=== PATIENT | female | born 1955 | race Caucasian/White ===

== ENCOUNTER → 2017-04-30 | Outpatient (CLI) | payer BC ==
--- NOTE | 2017-04-30 15:48 | MRI ---
BRAIN MRI WITH AND WITHOUT CONTRAST: INDICATION: A 61-year-old female with progressive headaches. Olfactory visual aura. FINDINGS: No prior imaging comparison available. The ventricular system is appropriate in size. Midline structures are maintained. No significant si gnal abnormality is apparent. No hemorrhagic susceptibility is seen. There is no acute territorial infarction. No pathologic intraaxial enhancement. The skull base flow voids are maintained. There is minimal mucosal thickening in the paranasal sinuses. IMPRESSION: There are no acute intracranial abnormalities. POS: [facility]
== END ==
LOC: MRI 09:00
PROVIDERS: ATTEND Student in an Organized Health Care Education/Training Program
DX: G43.109 Migraine with aura, not intractable, without status migrainosus (principal); R43.1 Parosmia; H53.9 Unspecified visual disturbance
CPT/HCPCS: 70553

== ENCOUNTER 2018-01-03 22:28 | Emergency (ER) | payer BC ==
--- NOTE | 2018-01-03 23:19 | RAD ---
TWO VIEW CHEST: 01/03/18 INDICATION: Chest pain. COMPARISON: 12/07/10. FINDINGS: There is no consolidation, effusion or pneumothorax. The cardiac silhouette is normal in size. IMPRESSION: No focal consolidation. POS: [facility]
[2018-01-03 23:20] LABS: #Basophils 0.1 thou/uL (0.0-0.2); #Eosinphils 0.1 thou/uL (0.0-0.7); #Lymphocytes 3.8 thou/uL (1.20-3.40); #Monocytes 0.5 thou/uL (0.11-0.59); %Basophils 1.3 % (0.0-1.0); %Eosinophils 1.6 % (0.0-10.0); %Lymphocytes 44.6 % (21.0-51.0); %Monocytes 5.9 % (0.0-10.0); %Neutrophils 46.6 % (42.0-75.0); Hemoglobin 16.2 g/dL (12.0-16.0); Mean Corpuscular HGB CONC 33.7 g/dL (32.0-36.0); Mean Corpuscular Hemoglobin 29.9 pg (27.0-31.0); Mean Corpuscular Volume 88.6 fL (78.0-98.0); Mean Platelet Volume 7.2 fL (7.4-10.4); Platelet Count 250 thou/uL (130-400); RBC Distribution Width 12.7 % (11.5-14.5); Red Blood Cell (RBC) Count 5.43 mill/uL (4.20-5.40); White Blood Cell (WBC) Count 8.5 thou/uL (4.8-10.8)
[2018-01-03 23:44] LABS: ALT (SGPT) 19 U/L (8-55); AST (SGOT) 20 U/L (5-34); Albumin 4.9 g/dL (3.4-4.8); Alkaline Phosphatase 87 U/L (40-150); Anion Gap 14 mmol/L (10-20); BUN (Urea Nitrogen) 7 mg/dL (9.8-20.1); Bilirubin, Total 0.8 mg/dL (0.2-1.2); CK (CPK) 38 U/L (29-168); Calc. Creatinine Clearance 0 mL/min (70-130); Calcium 10.3 mg/dL (7.8-10.44); Carbon Dioxide 29 mmol/L (23-31); Chloride 102 mmol/L (98-107); Estimated GFR-MDRD 82; Globulin 2.8 g/dL (2.4-3.5); Glucose 141 mg/dL (80-115); Potassium 4.2 mmol/L (3.5-5.1); Protein, Total 7.7 g/dL (6.0-8.3); Sodium 141 mmol/L (136-145)
[2018-01-03 23:47] LABS: Troponin I Less than 0.010 ng/mL (< 0.028)
--- NOTE | 2018-01-05 18:09 | EKG ---
Test Reason : CHEST PAIN Blood Pressure : / mmHG Vent. Rate : 081 BPM Atrial Rate : 081 BPM P-R Int : 180 ms QRS Dur : 082 ms QT Int : 376 ms P-R-T Axes : 064 -22 059 degrees QTc Int : 436 ms Normal sinus rhythm Possible Left atrial enlargement Inferior infarct , age undetermined Possible Anterior infarct , age undetermined Abnormal ECG Confirmed by COLLEEN ANGULO D.O. ([id number]), purchasing expeditor DAMION LEONE ([id number]) on 01/05/2018 6:09:19 PM Referred By: Confirmed By:COLLEEN ANGULO D.O.
== END 2018-01-04 00:40 | disposition home or self-care (01) ==
LOC: ERS 22:28
DX: R07.2 Precordial pain (principal); E03.9 Hypothyroidism, unspecified; E11.40 Type 2 diabetes mellitus with diabetic neuropathy, unspecified; I10 Essential (primary) hypertension; E78.5 Hyperlipidemia, unspecified; G43.909 Migraine, unspecified, not intractable, without status migrainosus
CPT/HCPCS: 36415; 71046; 80053; 82550; 82553; 84484; 85025; 93005

== ENCOUNTER 2018-11-27 00:22 | Emergency (ER) | payer BC ==
[2018-11-27] MEDS ORDERED: Morphine 4 MG/ML VIAL ONE (01:42)
[2018-11-27] MEDS ORDERED: Ondansetron PF 4 MG/2 ML Vial ONE (01:42)
[2018-11-27 02:02] LABS: #Basophils 0.2 thou/uL (0.0-0.2); #Eosinphils 0.2 thou/uL (0.0-0.7); #Lymphocytes 3.3 thou/uL (1.20-3.40); #Monocytes 0.6 thou/uL (0.11-0.59); #Neutrophils 6.5 thou/uL (1.40-6.50); %Basophils 1.5 % (0.0-1.0); %Eosinophils 1.5 % (0.0-10.0); %Lymphocytes 30.2 % (21.0-51.0); %Monocytes 5.9 % (0.0-10.0); %Neutrophils 60.9 % (42.0-75.0); Hemoglobin 15.7 g/dL (12.0-16.0); Mean Corpuscular HGB CONC 34.8 g/dL (32.0-36.0); Mean Platelet Volume 7.2 fL (7.4-10.4); Platelet Count 258 thou/uL (130-400); RBC Distribution Width 12.7 % (11.5-14.5); Red Blood Cell (RBC) Count 5.24 mill/uL (4.20-5.40); White Blood Cell (WBC) Count 10.7 thou/uL (4.8-10.8)
[2018-11-27 02:24] LABS: ALT (SGPT) 24 U/L (8-55); AST (SGOT) 20 U/L (5-34); Albumin 4.5 g/dL (3.4-4.8); Alkaline Phosphatase 92 U/L (40-150); Anion Gap 16 mmol/L (10-20); BUN (Urea Nitrogen) 11 mg/dL (9.8-20.1); Bilirubin, Total 0.6 mg/dL (0.2-1.2); Calc. Creatinine Clearance 0 mL/min (70-130); Carbon Dioxide 27 mmol/L (23-31); Chloride 100 mmol/L (98-107); Estimated GFR-MDRD 76; Globulin 2.4 g/dL (2.4-3.5); Glucose 174 mg/dL (80-115); Lipase 17 U/L (8-78); Potassium 3.7 mmol/L (3.5-5.1); Protein, Total 6.9 g/dL (6.0-8.3); Sodium 139 mmol/L (136-145)
[2018-11-27] MEDS ORDERED: Lidocaine Viscous Sol 2% 15 ml UD Cup ONE (02:33)
--- NOTE | 2018-11-27 05:49 | CT ---
CT ABDOMEN AND PELVIS WITH IV CONTRAST: INDICATIONS: History of three to five days with constipation with bright red blood per rectum. COMPARISON: None. FINDINGS: The lung bases are clear. There is post surgical change of gastroplasty. There is mild fatty infiltration of the liver. The pancreas, adrenal glands, and spleen appear within normal limits. The kidneys appear within normal limits. No hydronephrosis is evident. No free fluid or enlarged lymph nodes are evident. There are mild vascular calcifications involving the abdominal aorta. There is a mild amount of retained stool within the rectum and sigmoid colon. More fluid density is seen within the region of the transverse colon, ascending colon, and cecum. There is a normal append ix in the right lower quadrant. Reproductive structures are surgically absent. The bladder, rectum, and perirectal soft tissues appear within normal limits. There is mild scattered degenerative osteoarthritic change. IMPRESSION: 1. Mild amount of retained stool within the colon. 2. Gastroplasty change. 3. Mild fatty liver. 4. Mild vascular calcification of the abdominal aorta. POS: [facility]
[2018-11-27] MEDS ORDERED: ISOVUE-370 76%-LOCM 1 ML ONE (09:34)
== END 2018-11-27 04:18 | disposition home or self-care (01) ==
LOC: ERS 00:22
DX: K59.00 Constipation, unspecified (principal); E03.9 Hypothyroidism, unspecified; E11.9 Type 2 diabetes mellitus without complications; E78.5 Hyperlipidemia, unspecified; E78.00 Pure hypercholesterolemia, unspecified; I10 Essential (primary) hypertension; Z79.899 Other long term (current) drug therapy; Z79.84 Long term (current) use of oral hypoglycemic drugs
CPT/HCPCS: 74177; 80053; 83690; 85025; 96374; 96375; J2270; J2405; Q9966

== ENCOUNTER 2018-11-29 15:14 | Emergency (ER) | payer BC ==
[2018-11-29] MEDS ORDERED: Lorazepam 1 MG TAB ONE (16:09)
[2018-11-29] MEDS ORDERED: Lidocaine Viscous Sol 2% 15 ml UD Cup ONE (16:22)
== END 2018-11-29 18:10 | disposition home or self-care (01) ==
LOC: ERS 15:14
DX: K64.4 Residual hemorrhoidal skin tags (principal); K56.41 Fecal impaction; E03.9 Hypothyroidism, unspecified; E78.5 Hyperlipidemia, unspecified; E78.00 Pure hypercholesterolemia, unspecified; I10 Essential (primary) hypertension; G43.909 Migraine, unspecified, not intractable, without status migrainosus; F41.9 Anxiety disorder, unspecified; E11.40 Type 2 diabetes mellitus with diabetic neuropathy, unspecified; Z79.899 Other long term (current) drug therapy; Z79.84 Long term (current) use of oral hypoglycemic drugs
CPT/HCPCS: 99283

== ENCOUNTER 2019-05-09 14:07 | Outpatient (CLI) | payer BC ==
--- NOTE | 2019-05-15 13:29 | MMO ---
Bilateral MAMMO Bilat Screen [facility]. CLINICAL HISTORY: Patient is 63 years old and is seen for screening. The patient has the following family history of breast cancer: maternal aunt, at age 55. VIEWS: The views performed were: bilateral craniocaudal with tomosynthesis and bilateral mediolateral oblique with tomosynthesis. FILMS COMPARED: The present examination has been compared to prior imaging studies performed at [facility] on 12/29/2015, 01/08/2017 and 02/28/2018. This study has been interpreted with the assistance of computer-aided detection. MAMMOGRAM FINDINGS: There are scattered fibroglandular densities. There are stable benign appearing calcifications seen in both breasts. There are no suspicious masses, suspicious calcifications, or new areas of architectural distortion. IMPRESSION: THERE IS NO MAMMOGRAPHIC EVIDENCE OF MALIGNANCY. A ROUTINE FOLLOW-UP MAMMOGRAM IN 1 YEAR IS RECOMMENDED. THE RESULTS OF THIS EXAM WERE SENT TO THE PATIENT. ACR BI-RADS Category 2 - Benign finding MAMMOGRAPHY NOTE: 1. A negative mammogram report should not delay a biopsy if a dominant of clinically suspicious mass is present. 2. Approximately 10% to 15% of breast cancers are not detected by mammography. 3. Adenosis and dense breasts may obscure an underlying neoplasm. Reported by: ZA MCCLURE MD Electonically Signed: [id number]
== END 2019-05-09 14:08 | disposition home or self-care (01) ==
LOC: BICMAMMO 14:07
PROVIDERS: ATTEND Family Medicine
DX: Z12.31 Encounter for screening mammogram for malignant neoplasm of breast (principal); Z80.3 Family history of malignant neoplasm of breast
CPT/HCPCS: 77063; 77067

== ENCOUNTER 2019-06-16 12:50 | Outpatient (CLI) | payer BC | END 2019-06-16 12:51 | disposition home or self-care (01) | LOC: DTY/OP 12:50 | PROVIDERS: ATTEND Family Medicine | DX: E11.9 Type 2 diabetes mellitus without complications (principal) | CPT/HCPCS: 97802 ==

== ENCOUNTER 2020-05-14 10:51 | Outpatient (CLI) | payer BC | END 2020-05-14 10:52 | disposition home or self-care (01) | LOC: BICMAMMO 10:51 | PROVIDERS: ATTEND Family Medicine | DX: Z12.31 Encounter for screening mammogram for malignant neoplasm of breast (principal); Z80.3 Family history of malignant neoplasm of breast; Z91.89 Other specified personal risk factors, not elsewhere classified | CPT/HCPCS: 77063; 77067 ==

== ENCOUNTER 2022-06-30 12:02 | Outpatient (CLI) | payer MEDICARE, BC | END 2022-06-30 12:03 | disposition home or self-care (01) | LOC: BICMAMMO 12:02 | PROVIDERS: ATTEND Internal Medicine | DX: Z12.31 Encounter for screening mammogram for malignant neoplasm of breast (principal); Z80.3 Family history of malignant neoplasm of breast; Z91.89 Other specified personal risk factors, not elsewhere classified | CPT/HCPCS: 77063; 77067 ==

== ENCOUNTER 2023-08-13 12:02 | Outpatient (CLI) | payer MEDICARE | END 2023-08-13 12:03 | disposition home or self-care (01) | LOC: ULT 12:02 | PROVIDERS: ATTEND Internal Medicine | DX: R01.1 Cardiac murmur, unspecified (principal); I08.0 Rheumatic disorders of both mitral and aortic valves | CPT/HCPCS: 93306 ==

== ENCOUNTER 2023-08-13 13:35 | Outpatient (CLI) | payer MEDICARE | END 2023-08-13 13:36 | disposition home or self-care (01) | LOC: BICMAMMO 13:35 | PROVIDERS: ATTEND Internal Medicine | DX: Z12.31 Encounter for screening mammogram for malignant neoplasm of breast (principal); Z80.3 Family history of malignant neoplasm of breast; Z91.89 Other specified personal risk factors, not elsewhere classified | CPT/HCPCS: 77063; 77067 ==

== ENCOUNTER 2025-03-30 09:49 | Day surgery (SDC) | payer MEDICARE ==
[2025-03-30] MEDS: Zoledronic Acid/Mannitol&Water 5 MG in Premix 1 BAG IVPB SCH (10:23)
[2025-03-30 10:32] VITALS: BP 134/76; TEMP 97.6
[2025-03-30] MEDS ORDERED: FLU (Fluad Triv) 25-26 (65UP)PF 45 MCG/0.5 ML Syringe IM ONE (14:00)
== END 2025-03-30 11:11 | disposition home or self-care (01) ==
LOC: ONC/OP 09:49
PROVIDERS: ATTEND Internal Medicine Endocrinology, Diabetes & Metabolism
DX: M81.8 Other osteoporosis without current pathological fracture (principal); E11.9 Type 2 diabetes mellitus without complications; I10 Essential (primary) hypertension; E78.5 Hyperlipidemia, unspecified; E03.9 Hypothyroidism, unspecified; K21.9 Gastro-esophageal reflux disease without esophagitis; Z90.710 Acquired absence of both cervix and uterus; Z98.84 Bariatric surgery status; Z88.8 Allergy status to other drugs, medicaments and biological substances
CPT/HCPCS: 96365; J3489